=== PATIENT | male | born 1955 | race Two or more races ===

== ENCOUNTER 2019-11-23 23:03 | Emergency (ER) | payer SELFPAY ==
[~2019-11-23] VITALS: Ht 172.7 cm; Wt 90.7 kg
[2019-11-24 00:38] LABS: Basophils # (auto) 0.1 uL; Basophils % (auto) 0.4 % (0.0-2.0); Eosinophils # (auto) 0.1 uL; Eosinophils % (auto) 0.3 % (0.0-7.0); Hematocrit 34.4 % (41.0-53.0); Hemoglobin 11.4 g/dL (13.5-17.5); Lymphocytes # (auto) 0.5 uL; Lymphocytes % (auto) 2.9 % (10.0-50.0); Mean Corpuscular Hemoglobin 31.4 pg (28.0-32.0); Mean Corpuscular Hgb Conc. 33.3 g/dL (32.0-36.0); Mean Corpuscular Volume 94.5 fL (80.0-100.0); Monocytes # (auto) 0.9 uL; Monocytes % (auto) 5.7 % (0.0-12.0); Neutrophils % (auto) 90.7 % (37.0-80.0); Platelet Count (auto) 370 10^3/uL (140-450); Red Blood Cells 3.64 10^6/uL (4.5-5.90); Red Cell Distribution Width 14.3 % (11.8-14.3); White Blood Cell 16.6 10^3/uL (4.4-10.8)
[2019-11-24 01:40] LABS: Albumin 3.2 g/dL (3.4-5.0); BUN/Creatinine Ratio 21.2; Calcium 8.4 mg/dL (8.5-10.1); Magnesium 2.2 mg/dL (1.6-2.6); Total Protein 7.1 g/dL (6.4-8.2)
[2019-11-24 01:47] LABS: Bilirubin, Total 0.4 mg/dL (0.2-1.0)
[2019-11-24 03:00] VITALS: BP 125/76
[2019-11-24] MEDS ORDERED: MILK OF MAGNESIA 30ML SUSP PO ONE (04:00)
== END 2019-11-24 04:35 | disposition home or self-care (01) ==
LOC: EDBD 23:03 → ER 23:03
DX: K57.30 Diverticulosis of large intestine without perforation or abscess without bleeding (principal); D72.829 Elevated white blood cell count, unspecified; K62.5 Hemorrhage of anus and rectum; I10 Essential (primary) hypertension
CPT/HCPCS: 36415; 74176; 80053; 82270; 83690; 83735; 84484; 85025; 86850; 86870; 86900; 86901; 93005